=== PATIENT | female | born 1960 | race Caucasian/White ===

== ENCOUNTER 2016-09-29 10:05 | Day surgery (SDC) | payer BC ==
--- NOTE | ~2016-09-29 | EGD ---
EGD REPORT [facility] [address] [id number] NAME: BRIE FELDMAN : 64 STATUS : REG [facility]#: [id number] AGE: 56 ADM/REG DATE : 09/29/16 MR#: [id number] REPORT SERV DATE: 09/29/16 DICTATED BY: DATE: REPORT STATUS : Draft TRANSCRIBED BY: [employer] DATE: 09/29/16 [facility] Patient Name: Brie Feldman Date of : 1960 Attending MD: BEAU GUAJARDO, Procedure Date No Time: 09/29/2016 Procedure: Upper EUS Indications: Elevated lipase, Dysphagia Referring MD: JOHNATHAN SIMENTAL III, MD Medicines: Monitored Anesthesia Care Complications: No immediate complications. Estimated blood loss: None. Procedure: Pre-Anesthesia Assessment: - ASA Grade Assessment: III - A patient with severe systemic disease. After obtaining informed consent, the endoscope was passed under direct vision. Throughout the procedure, the patient's blood pressure, pulse, and oxygen saturations were monitored continuously. The Endoscope was introduced through the mouth, and advanced to the second part of duodenum. The GIF [id number] was introduced through the mouth, and advanced to the second part of duodenum. Findings: Endoscopic Finding : The examined esophagus was endoscopically normal. A guidewire was placed and the scope was withdrawn. Dilation was performed with a Savary dilator with no resistance at 54 Fr. Evidence of a Oscar fundoplication was found in the gastric fundus. The cardia and gastric fundus were normal on retroflexion. The exam of the stomach was otherwise normal. The examined duodenum was endoscopically normal. Endosonographic Finding : There was no sign of significant endosonographic abnormality in the entire pancreas. The pancreas was well visualized, no pathologic lymphadenopathy, no masses, no calcifications, the pancreatic duct was well visualized from ampulla to tail, the pancreatic duct was regular in contour. There was no sign of significant endosonographic abnormality in the common bile duct. An unremarkable gallbladder was identified. The bile duct measured 5 mm. There was no sign of significant endosonographic abnormality in the entire pancreas. The pancreas was well visualized, no pathologic lymphadenopathy, no masses, no calcifications, the pancreatic duct was well visualized from ampulla to tail, the pancreatic duct was regular in EGD REPORT [address] [address] NAME: BRIE FELDMAN : 64 STATUS : REG [facility]#: [id number] AGE: 56 ADM/REG DATE : 09/29/16 MR#: [id number] REPORT SERV DATE: 09/29/16 DICTATED BY: DATE: REPORT STATUS : Draft TRANSCRIBED BY: [employer] DATE: 09/29/16 contour. No lymphadenopathy seen. There was no sign of significant endosonographic abnormality in the examined duodenum. Endosonographic images of the stomach were unremarkable. There was no sign of significant endosonographic abnormality in the esophagus. Impression: - Normal esophagus. Dilated. - A Oscar fundoplication was found. - Normal examined duodenum. - There was no sign of significant pathology in the entire pancreas. - There was no sign of significant pathology in the common bile duct. - There was no sign of significant pathology in the entire pancreas. - There was no sign of significant pathology in the examined duodenum. - Endosonographic images of the stomach were unremarkable. - There was no sign of significant pathology in the esophagus. Recommendation: - Return to previous diet. - Continue present medications. - Return to referring physician. Procedure Code(s): --- Professional --- 74708, Esophagogastroduodenoscopy, flexible, transoral; with endoscopic ultrasound examination, including the esophagus, stomach, and either the duodenum or a surgically altered stomach where the jejunum is examined distal to the anastomosis 18514, Esophagogastroduodenoscopy, flexible, transoral; with insertion of guide wire followed by passage of dilator(s) through esophagus over guide wire Diagnosis Code(s): --- Professional --- Z98.89, Other specified postprocedural states R74.8, Abnormal levels of other serum enzymes R13.10, Dysphagia, unspecified CPT copyright 2013 [employer]. All rights reserved. The codes documented in this report are preliminary and upon certified procedural coder review may EGD REPORT [facility] [address] [address] NAME: BRIE FELDMAN : [birth year] STATUS : REG [facility]#: [id number] AGE: 56 ADM/REG DATE : 09/29/16 MR#: [id number] REPORT SERV DATE: 09/29/16 DICTATED BY: DATE: REPORT STATUS : Draft TRANSCRIBED BY: [employer] DATE: 09/29/16 be revised to meet current compliance requirements. BEAU GUAJARDO, 09/29/2016 11:54 AM Number of Addenda: 0 Note Initiated On: 09/29/2016 11:24 AM Scope Withdrawal Time 0 hours 0 minutes 0 seconds [address] [place] [id number]
[~2016-09-29 10:05] MED LIST: ALEVE220 MG PO; AMOXIL500 MG PO; ARMOUR THYRO60 MG PO; C5; CELEXA40 MG PO; CLIMARA0.05 MG TD; CYMBALTA30 PO; CYTO5 PO; DIL2TAB PO; ESTRACE0.5 MG PO; GLUCPH PO; IBU400 PO; LISINOPRIL40 MG PO; LOP25 PO; LOP50 PO; NUCYNTA50 MG PO; OXYCOD PO; P20 PO; PLAQ200B PO; PROMETRIUM PO; PROTONIX PO; REG PO; SYMBICORT 160/41 INH INH; SYN.05 PO; SYN075 PO; SYN1 PO; SYN125 PO; SYNTHROID175 MCG PO; VENTOLIN HFA INH; VITAMIN B-121000 MC1 SL; VITAMIN D31000 UNIT PO; VITD PO; ZESTORETIC PO; ZOL100 PO
== END 2016-09-29 23:59 | disposition home or self-care (01) ==
LOC: DMU 10:05
PROVIDERS: Internal Medicine Gastroenterology
PROC: 0DJ08ZZ Inspection of Upper Intestinal Tract, Via Natural or Artificial Opening Endoscopic (ICD-10-PCS; 2016-09-29)
PROC: 0D758ZZ Dilation of Esophagus, Via Natural or Artificial Opening Endoscopic (ICD-10-PCS; principal; 2016-09-29 11:30)
DX: R13.10 Dysphagia, unspecified (principal); R74.8 Abnormal levels of other serum enzymes; I10 Essential (primary) hypertension; E66.01 Morbid (severe) obesity due to excess calories; G47.33 Obstructive sleep apnea (adult) (pediatric); F32.9 Major depressive disorder, single episode, unspecified; G47.30 Sleep apnea, unspecified; M19.90 Unspecified osteoarthritis, unspecified site; E03.9 Hypothyroidism, unspecified; Z88.5 Allergy status to narcotic agent; Z88.8 Allergy status to other drugs, medicaments and biological substances; Z90.89 Acquired absence of other organs; Z79.899 Other long term (current) drug therapy; Z98.890 Other specified postprocedural states
CPT/HCPCS: 84703; C1725